=== PATIENT | female | born 1980 | race Caucasian/White ===

== ENCOUNTER 2021-03-22 07:37 | Outpatient (CLI) | payer MEDICAID ==
[2021-03-22 14:52] LABS: ALBUMIN 4.2 g/dL (3.2-5.5); ALBUMIN/GLOBULIN RATIO 1.7 (1.0-2.2); BILIRUBIN,TOTAL 0.6 mg/dL (0.2-1.0); CREATININE 0.7 mg/dL (0.4-1.0); POTASSIUM 3.6 mmol/L (3.5-5.0); TOTAL PROTEIN 6.7 g/dL (6.7-8.2)
[2021-03-22 14:55] LABS: EOSINOPHILS % (AUTO) 4.2 %; HGB - HEMOGLOBIN 13.4 g/dL (12.0-16.0); LYMPHOCYTES % (AUTO) 31.5 %; MEAN CORPUSCULAR HEMOGLOBIN 32.9 pg (27.0-31.0); MEAN CORPUSCULAR HGB CONC 33.5 g/dL (32.0-36.0); MEAN CORPUSCULAR VOLUME 98.3 fL (81.0-99.0); MONOCYTES % (AUTO) 6.6 %; NEUTROPHILS % (AUTO) 56.5 %; RED BLOOD COUNT 4.07 10^6/uL (4.20-5.40); RED CELL DISTRIBUTION WIDTH 12.9 % (12.0-15.0); WHITE BLOOD COUNT 5.9 x10^3/uL (4.8-10.8)
[2021-03-22 15:07] LABS: THYROID STIMULATING HORMONE 2.17 uIU/mL (0.34-5.60)
[2021-03-22 15:11] LABS: ABNORMAL LYMPHS % (MANUAL) 0 %
[2021-03-22 15:44] LABS: BAND NEUTROPHILS % (MANUAL) 1 %; EOSINOPHILS # (MANUAL) 0.5 10^3/uL (0-0.7); LYMPHOCYTES # (MANUAL) 2.4 10^3/uL (1.5-3.5); LYMPHOCYTES % (MANUAL) 33 %; MONOCYTES # (MANUAL) 0.1 10^3/uL (0.0-1.0); NEUTROPHILS # (MANUAL) 2.9 10^3/uL (1.5-6.6); REACTIVE LYMPHS % (MANUAL) 7 %
[2021-03-22 15:46] LABS: DIFFERENTIAL COMMENT MANUAL DIFFERENTIAL; PLATELET ESTIMATE, MANUAL NORMAL (130-450,000) (NORMAL); PLATELET MORPHOLOGY NORMAL APPEARANCE (NORMAL); RBC MORPHOLOGY (MULTIPLE) NORMAL APPEARANCE (NORMAL)
[2021-03-22 17:59] LABS: MEAN PLATELET VOLUME 12.1 fL (7.9-10.8); PLT - PLATELET COUNT 212 10^3/uL (130-450)
== END 2021-03-22 07:38 | disposition home or self-care (01) ==
LOC: LAB.S 07:37
PROVIDERS: ATTEND Registered Nurse
DX: R55 Syncope and collapse (principal); Z86.2 Personal history of diseases of the blood and blood-forming organs and certain disorders involving the immune mechanism; Z79.899 Other long term (current) drug therapy
CPT/HCPCS: 36415; 80053; 84443; 85025; 86592

== ENCOUNTER 2021-05-16 15:11 | Outpatient (CLI) | payer MEDICAID | END 2021-05-16 15:12 | disposition critical access hospital (66) | LOC: EMS 15:11 | DX: T39.312A Poisoning by propionic acid derivatives, intentional self-harm, initial encounter (principal); T39.1X2A Poisoning by 4-Aminophenol derivatives, intentional self-harm, initial encounter; T48.3X2A Poisoning by antitussives, intentional self-harm, initial encounter; R53.1 Weakness; R53.83 Other fatigue | CPT/HCPCS: A0425; A0429; A0999 ==

== ENCOUNTER 2021-05-16 15:46 | Emergency (ER) | payer MEDICAID ==
[2021-05-16] MEDS ORDERED: SODIUM CHLORIDE 0.9% 1,000 ML IV STA (15:52)
--- NOTE | 2021-05-16 15:56 | ED Physician Documentation ---
PD HPI OVERDOSE - Stated complaint Stated Complaint: OD - History obtained from History obtained from: Patient, EMS - Additional information Additional information: At 1pm took apprx 100-150 x 200mg ibuprofen, full bottle Equaline cold/flu r elief (APAP, DXM and doxylamine) and many kratom. SI attempt. Per poinson control, specifics: EKG for doxyalamine, check QRS For APAP, check 5pm level, NAD if >150 Conservative care o/w, benzos if szs. Review of Systems Ten Systems: 10 systems reviewed and negative Constitutional: reports: Reviewed and negative Throat: reports: Reviewed and negative Cardiac: reports: Reviewed and negative Respiratory: reports: Reviewed and negative PD PAST MEDICAL HISTORY - Past Medical History Past Medical History: No - Past Surgical History Past Surgical History: No - Present Medications Home Medications: Ambulatory Orders Medication Instructions Recorded Confirmed Buspirone HCl 15 mg PO BID 05/17/21 05/17/21 Venlafaxine HCl [Effexor Xr] 150 mg PO DAILY 05/17/21 05/17/21 - Allergies Allergies/Adverse Reactions: Allergies Allergy/AdvReac Type Severity Reaction Status Date / Time No Known Drug Allergies Allergy Verified 05/16/21 16:02 - Living Situation Living Situation: reports: With spouse/s.o. - Social History Does the pt smoke?: No Does the pt drink ETOH?: No Does the pt have substance abuse?: Yes - Family History Family history: reports: Non contributory PD ED PE NORMAL - Vitals Vital signs reviewed: Yes - General General: Alert and oriented X 3, No acute distress, Other (slightly tremulous) - HEENT HEENT: PERRL, EOMI, Other (mild nystagmus) - Neck Neck: Supple, no meningeal sign, No bony TTP - Cardiac Cardiac: No murmur, Other (modest sinus tach) - Respiratory Respiratory: No respiratory distress, Clear bilaterally - Abdomen Abdomen: Non tender - Derm Derm: Normal color, Warm and dry - Extremities Extremities: No edema, No calf tenderness / cord - Neuro Neuro: Alert and oriented X 3, Normal speech Results - Vitals Vitals: Vital Signs - 24 hr 05/16/21 05/16/21 05/16/21 15:52 16:15 16:30 Temperature 36.6 C Heart Rate 69 106 H 106 H Respiratory 17 17 19 Rate Blood Pressure 117/85 H 139/77 H 103/55 L O2 Saturation 100 100 100 05/16/21 05/16/21 05/16/21 17:02 17:30 18:00 Temperature Heart Rate 113 H 110 H 114 H Respiratory 19 17 19 Rate Blood Pressure 146/75 H 145/90 H 138/82 H O2 Saturation 95 100 99 05/16/21 05/16/21 05/16/21 18:30 19:00 19:30 Temperature Heart Rate 110 H 107 H 103 H Respiratory 16 20 15 Rate Blood Pressure 130/78 120/75 128/69 O2 Saturation 99 100 100 05/16/21 05/16/21 05/16/21 20:00 20:30 21:00 Temperature Heart Rate 102 H 98 101 H Respiratory 18 9 L 12 Rate Blood Pressure 108/74 114/70 110/69 O2 Saturation 100 100 100 05/16/21 05/16/21 05/16/21 21:30 22:00 22:46 Temperature Heart Rate 95 93 98 Respiratory 13 12 20 Rate Blood Pressure 121/72 119/68 119/75 O2 Saturation 100 100 99 05/16/21 05/16/21 05/17/21 23:00 23:39 00:06 Temperature Heart Rate 92 91 94 Respiratory 15 11 L 12 Rate Blood Pressure 118/75 121/74 119/73 O2 Saturation 98 97 98 05/17/21 05/17/21 05/17/21 00:42 01:00 01:30 Temperature Heart Rate 88 84 89 Respiratory 13 11 L 13 Rate Blood Pressure 102/60 110/65 O2 Saturation 100 98 97 05/17/21 05/17/21 05/17/21 02:17 02:48 03:00 Temperature Heart Rate 80 82 81 Respiratory 12 12 19 Rate Blood Pressure 102/64 115/65 119/64 O2 Saturation 98 99 95 05/17/21 05/17/21 05/17/21 03:32 04:02 04:33 Temperature Heart Rate 82 76 79 Respiratory 18 16 17 Rate Blood Pressure 121/67 124/67 O2 Saturation 97 98 96 05/17/21 05/17/21 05:22 08:13 Temperature 37 C Heart Rate 83 81 Respiratory 15 14 Rate Blood Pressure 125/78 124/88 H O2 Saturation 97 98 Oxygen O2 Source Room air - EKG (time done) 1605 Rate: Rate (enter#) (105) Rhythm: Sinus tachycardia, LAE [place]: Normal Intervals: Normal MS. No: Prolonged QT, Wide QRS QRS: Normal Ischemia: Normal ST segments, Non specific changes. No: ST elevation c/w ischemia, ST depression - Labs Labs: Microbiology 05/16/21 16:03 Urine Culture - Final Urine,Clean Catch Less Than 10,000 COLONIES/ML UROGENITAL DEBORAH Laboratory Tests 05/16/21 05/16/21 05/16/21 16:03 16:05 16:05 WBC 8.0 RBC 4.00 L Hgb 13.1 Hct 39.3 MCV 98.3 MCH 32.8 H MCHC 33.3 RDW 13.0 Plt Count 232 MPV 10.7 Neut # (Auto) 6.0 Lymph # (Auto) 1.2 L Carbon # (Auto) 0.6 Eos # (Auto) 0.1 Baso # (Auto) 0.1 Absolute Nucleated RBC 0.00 Nucleated RBC % 0.0 Sodium 135 Potassium 2.8 L Chloride 101 Carbon Dioxide 20 L Anion Gap 14.0 H BUN 7 Creatinine 0.7 Estimated GFR (MDRD) 92 Glucose 86 Calcium 8.6 Total Bilirubin 0.7 AST 24 ALT 22 Alkaline Phosphatase 43 Total Protein 6.7 Albumin 4.3 Globulin 2.4 Albumin/Globulin Ratio 1.8 Lipase 29 TSH Urine Color YELLOW Urine Clarity HAZY Urine pH 5.5 Ur Specific [place] 1.010 Urine Protein NEGATIVE Urine Glucose (UA) NEGATIVE Urine Ketones NEGATIVE Urine Occult Blood NEGATIVE Urine Nitrite NEGATIVE Urine Bilirubin NEGATIVE Urine Urobilinogen 0.2 (NORMAL) Ur Leukocyte Esterase SMALL H Urine RBC 0-5 Urine WBC 6-10 H Ur Squamous Epith Cells FEW Squamous Urine Bacteria Few Ur Microscopic Review INDICATED Urine Culture Comments INDICATED Urine HCG, Qual NEGATIVE Salicylates < 6.0 Urine Opiates Screen NEGATIVE Ur Oxycodone Screen NEGATIVE Urine Methadone Screen NEGATIVE Ur Propoxyphene Screen NEGATIVE Acetaminophen 80 H* Ur Barbiturates Screen NEGATIVE Ur Tricyclics Screen NEGATIVE Ur Phencyclidine Scrn NEGATIVE Ur Amphetamine Screen NEGATIVE U Methamphetamines Scrn NEGATIVE U Benzodiazepines Scrn NEGATIVE Urine Cocaine Screen NEGATIVE U Cannabinoids Screen NEGATIVE Ethyl Alcohol 16.4 SARS-CoV-2 (PCR) 05/16/21 05/16/21 05/16/21 16:05 16:07 17:12 WBC RBC Hgb Hct MCV MCH MCHC RDW Plt Count MPV Neut # (Auto) Lymph # (Auto) Carbon # (Auto) Eos # (Auto) Baso # (Auto) Absolute Nucleated RBC Nucleated RBC % Sodium Potassium Chloride Carbon Dioxide Anion Gap BUN Creatinine Estimated GFR (MDRD) Glucose Calcium Total Bilirubin AST ALT Alkaline Phosphatase Total Protein Albumin Globulin Albumin/Globulin Ratio Lipase TSH 1.54 Urine Color Urine Clarity Urine pH Ur Specific [place] Urine Protein Urine Glucose (UA) Urine Ketones Urine Occult Blood Urine Nitrite Urine Bilirubin Urine Urobilinogen Ur Leukocyte Esterase Urine RBC Urine WBC Ur Squamous Epith Cells Urine Bacteria Ur Microscopic Review Urine Culture Comments Urine HCG, Qual Salicylates Urine Opiates Screen Ur Oxycodone Screen Urine Methadone Screen Ur Propoxyphene Screen Acetaminophen 86 H* Ur Barbiturates Screen Ur Tricyclics Screen Ur Phencyclidine Scrn Ur Amphetamine Screen U Methamphetamines Scrn U Benzodiazepines Scrn Urine Cocaine Screen U Cannabinoids Screen Ethyl Alcohol SARS-CoV-2 (PCR) NOT DETECTED 05/17/21 09:32 WBC RBC Hgb Hct MCV MCH MCHC RDW Plt Count MPV Neut # (Auto) Lymph # (Auto) Carbon # (Auto) Eos # (Auto) Baso # (Auto) Absolute Nucleated RBC Nucleated RBC % Sodium 142 Potassium 3.6 Chloride 107 Carbon Dioxide 26 Anion Gap 9.0 BUN 6 Creatinine 0.9 Estimated GFR (MDRD) 69 L Glucose 93 Calcium 8.6 Total Bilirubin AST ALT Alkaline Phosphatase Total Protein Albumin Globulin Albumin/Globulin Ratio Lipase TSH Urine Color Urine Clarity Urine pH Ur Specific [place] Urine Protein Urine Glucose (UA) Urine Ketones Urine Occult Blood Urine Nitrite Urine Bilirubin Urine Urobilinogen Ur Leukocyte Esterase Urine RBC Urine WBC Ur Squamous Epith Cells Urine Bacteria Ur Microscopic Review Urine Culture Comments Urine HCG, Qual Salicylates Urine Opiates Screen Ur Oxycodone Screen Urine Methadone Screen Ur Propoxyphene Screen Acetaminophen < 10 L Ur Barbiturates Screen Ur Tricyclics Screen Ur Phencyclidine Scrn Ur Amphetamine Screen U Methamphetamines Scrn U Benzodiazepines Scrn Urine Cocaine Screen U Cannabinoids Screen Ethyl Alcohol SARS-CoV-2 (PCR) PD MEDICAL DECISION MAKING - ED course ED course: 40yo woman with si attempt via OD.Tylenol level remained below tx threshold at 4 hr [place]. Improived here but with some vomiting. Clear at 2100 05/16/21 Care to overnight EDMD at shift change pending psych bed search. Departure - Departure Disposition: 65 Psych Hosp/Unit DC/Xfer Clinical Impression: Depression, Medication overdose Condition: Serious Discharge Date/Time: 05/17/21 12:44
[2021-05-16 16:07] LABS: MUDS CUTOFF CONCENTRATIONS CUTOFF CONC BELOW:
[2021-05-16 16:09] LABS: BILIRUBIN,URINE NEGATIVE (NEGATIVE); GLUCOSE, URINE (UA) NEGATIVE (NEGATIVE); KETONES,URINE (UA) NEGATIVE (NEGATIVE); LEUKOCYTE ESTERASE, URINE SMALL (NEGATIVE); NITRITE,URINE NEGATIVE (NEGATIVE); OCCULT BLOOD,URINE NEGATIVE (NEGATIVE); PH,URINE 5.5 PH (5.0-7.5); PROTEIN,URINE NEGATIVE (NEGATIVE); UROBILINOGEN,URINE 0.2 (NORMAL) E.U./dL (NORMAL)
[2021-05-16 16:10] LABS: CLARITY,URINE HAZY (CLEAR)
[2021-05-16 16:11] LABS: HCG UR QUAL NEGATIVE
[2021-05-16 16:16] LABS: BASOPHILS # (AUTO) 0.1 10^3/uL (0.0-0.1); BASOPHILS % (AUTO) 0.8 %; EOSINOPHILS # (AUTO) 0.1 10^3/uL (0.0-0.7); EOSINOPHILS % (AUTO) 0.9 %; HCT - HEMATOCRIT 39.3 % (37.0-47.0); HGB - HEMOGLOBIN 13.1 g/dL (12.0-16.0); LYMPHOCYTES # (AUTO) 1.2 10^3/uL (1.5-3.5); LYMPHOCYTES % (AUTO) 14.4 %; MEAN CORPUSCULAR HEMOGLOBIN 32.8 pg (27.0-31.0); MEAN CORPUSCULAR HGB CONC 33.3 g/dL (32.0-36.0); MEAN CORPUSCULAR VOLUME 98.3 fL (81.0-99.0); MEAN PLATELET VOLUME 10.7 fL (7.9-10.8); MONOCYTES # (AUTO) 0.6 10^3/uL (0.0-1.0); NEUTROPHILS % (AUTO) 75.8 %; PLT - PLATELET COUNT 232 10^3/uL (130-450)
[2021-05-16 16:22] LABS: RBC,URINE 0-5 /HPF (0-5)
[2021-05-16 16:23] LABS: AMPHETAMINE SCREEN,URINE NEGATIVE (NEGATIVE); BACTERIA,URINE Few /HPF (None Seen); BARBITURATE SCREEN,UR NEGATIVE (NEGATIVE); BENZODIAZEPINES SCREEN, URINE NEGATIVE (NEGATIVE); COCAINE SCREEN URINE NEGATIVE (NEGATIVE); METHADONE SCREEN, URINE NEGATIVE (NEGATIVE); METHAMPHETAMINES SCREEN, URINE NEGATIVE (NEGATIVE); OPIATE SCREEN, URINE NEGATIVE (NEGATIVE); OXYCODONE SCREEN, URINE NEGATIVE (NEGATIVE); PROPOXYPHENE SCREEN, URINE NEGATIVE (NEGATIVE); SQUAMOUS EPITHELIAL CELL,UR FEW Squamous (<= Few); THC CANNABINOID SCREEN, URINE NEGATIVE (NEGATIVE); TRICYCLIC ANTIDEPRESSANT,URINE NEGATIVE (NEGATIVE)
[2021-05-16 16:35] LABS: ALBUMIN 4.3 g/dL (3.2-5.5); ALBUMIN/GLOBULIN RATIO 1.8 (1.0-2.2); ALKALINE PHOSPHATASE 43 IU/L (42-121); ALT ALANINE AMINOTRANSFERASE 22 IU/L (10-60); AST ASPARTATE AMINOTRANSFERASE 24 IU/L (10-42); BILIRUBIN,TOTAL 0.7 mg/dL (0.2-1.0); BUN - BLOOD UREA NITROGEN 7 mg/dL (6-20); CALCIUM 8.6 mg/dL (8.5-10.3); CARBON DIOXIDE - CO2 20 mmol/L (21-32); CHLORIDE 101 mmol/L (101-111); CREATININE 0.7 mg/dL (0.4-1.0); GFR - MDRD 92 (>89); GLUCOSE 86 mg/dL (70-100); LIPASE 29 U/L (22-51); POTASSIUM 2.8 mmol/L (3.5-5.0); SODIUM 135 mmol/L (135-145); TOTAL PROTEIN 6.7 g/dL (6.7-8.2)
[2021-05-16] MEDS ORDERED: POTASSIUM CHLOR 10 MEQ/100 ML 10 MEQ/100 ML BAG IV STA (16:38)
[2021-05-16 16:39] LABS: ETOH - ETHANOL 16.4 mg/dL; SALICYLATE < 6.0 mg/dL
[2021-05-16] MEDS ORDERED: SODIUM CHLORIDE 0.9% 500 ML IV ONE (16:40)
[2021-05-16 16:41] LABS: ACETAMINOPHEN 80 ug/mL (10-30)
[2021-05-16] MEDS ORDERED: ONDANSETRON 4 MG/2 ML VIAL IVP STA (18:41)
[2021-05-16] MEDS ORDERED: ONDANSETRON 4 MG/2 ML VIAL ONE (18:50)
[2021-05-17 08:14] VITALS: BP 124/88
[2021-05-17] MEDS ORDERED: POTASSIUM CHLORIDE 20 MEQ TABLET PO STA (09:26)
[2021-05-17 09:48] LABS: ACETAMINOPHEN < 10 ug/mL (10-30); BUN - BLOOD UREA NITROGEN 6 mg/dL (6-20); CALCIUM 8.6 mg/dL (8.5-10.3); CARBON DIOXIDE - CO2 26 mmol/L (21-32); CHLORIDE 107 mmol/L (101-111); CREATININE 0.9 mg/dL (0.4-1.0); GFR - MDRD 69 (>89); GLUCOSE 93 mg/dL (70-100); POTASSIUM 3.6 mmol/L (3.5-5.0); SODIUM 142 mmol/L (135-145)
--- NOTE | 2021-05-17 11:18 | ED Physician Documentation ---
ED Addendum - Addendum Addendum: The patient was signed out to me at change of shift after overdosing on her medication, pending social work evaluation and Final disposition. The patient had been medically cleared at 2100 last night. She was evaluated by social work and accepted for transfer to [facility]. The patient was calm and cooperative throughout her stay in the emergency department and was stable on transfer. Final impression: 1. Major depression 2. Suicidal attempt 3. Medication overdose Disposition: Transfer to acute psychiatric facility in serious, but stable condition 05/17/21 11:16
== END 2021-05-17 12:44 ==
LOC: EDUNIT# → ED 15:46
DX: T39.312A Poisoning by propionic acid derivatives, intentional self-harm, initial encounter (principal); T38.0X2A Poisoning by glucocorticoids and synthetic analogues, intentional self-harm, initial encounter; T45.0X2A Poisoning by antiallergic and antiemetic drugs, intentional self-harm, initial encounter; F32.9 Major depressive disorder, single episode, unspecified; Z20.822 Contact with and (suspected) exposure to COVID-19
CPT/HCPCS: 36415; 80048; 80053; 80306; 80307; 80320; 80329; 81001; 81025; 83690; 84443; 85025; 87086; 87635; 93005; 96361; 96374; 99283; 99285; A9270; 81003

== ENCOUNTER 2023-10-26 08:00 | Outpatient (CLI) | payer MEDICAID | END 2023-10-26 23:59 | disposition home or self-care (01) | LOC: LAB.N 08:00 | PROVIDERS: ATTEND Registered Nurse | DX: J02.9 Acute pharyngitis, unspecified (principal) | CPT/HCPCS: 87070 ==